=== PATIENT | male | born 1995 | race African-American/Black ===

== ENCOUNTER 2021-05-20 08:34 | Emergency (ER) | payer SELFPAY ==
[~2021-05-20] VITALS: Ht 180.3 cm; Wt 74.8 kg
[2021-05-20 08:40] VITALS: BP 114/75
--- NOTE | 2021-05-20 08:50 | NUR ---
SEEN AND EXAMINED BY .
[2021-05-20] MEDS ORDERED: IPRATROPIUM NEB FS 0.5 MG/2.5 ML AMPUL.NEB ONE (08:53)
[2021-05-20] MEDS ORDERED: ALBUTEROL FS 2.5 MG/3 ML VIAL.NEB ONE (08:53)
--- NOTE | 2021-05-20 08:53 | NUR ---
RT AT BEDSIDE FOR BREATHING TX.
[2021-05-20] MEDS ORDERED: predniSONE 20 MG TABLET ONE (08:56)
[2021-05-20] MEDS ORDERED: IPRATROPIUM NEB FS 0.5 MG/2.5 ML AMPUL.NEB NEB ONE (09:00)
[2021-05-20] MEDS ORDERED: predniSONE 20 MG TABLET PO ONE (09:00)
[2021-05-20] MEDS ORDERED: ALBUTEROL FS 2.5 MG/3 ML VIAL.NEB NEB ONE (09:00)
[2021-05-20] MEDS ORDERED: ALBU8.5H8 INH (09:23)
[2021-05-20] MEDS ORDERED: PRED50TA PO (09:23)
--- NOTE | 2021-05-20 09:30 | NUR ---
Patient discharged to home in stable condition. Written and verbal after care instructions given. Patient verbalizes understanding of instruction.
== END 2021-05-20 09:32 | disposition home or self-care (01) ==
LOC: ER 08:37
DX: J45.909 Unspecified asthma, uncomplicated (principal); Z79.899 Other long term (current) drug therapy
CPT/HCPCS: 94640; 99283; J7512

== ENCOUNTER 2021-06-12 12:23 | Emergency (ER) | payer SELFPAY ==
[~2021-06-12] VITALS: Ht 182.9 cm; Wt 84.4 kg
[~2021-06-12 12:23] MED LIST: ALBU8.5H8 INH; PRED50TA PO
--- NOTE | 2021-06-12 12:36 | NUR ---
THE PATIENT BIBS FOR FEELING SHORT OF BREATH SINCE WAKING UP THIS MORNING. CANT AFFORD ASTHMA MEDICATION AT THIS TIME. OXYGEN SATURATION LEVEL IN ROOM AIR IS AT 95%. DENIES PAIN. ATTACHED TO THE MONITOR. WILL CONTINUE TO MONITOR THE PATIENT.
[2021-06-12] MEDS ORDERED: IPRATROPIUM NEB FS 0.5 MG/2.5 ML AMPUL.NEB ONE (12:38)
[2021-06-12] MEDS ORDERED: ALBUTEROL FS 2.5 MG/3 ML VIAL.NEB ONE (12:38)
[2021-06-12] MEDS ORDERED: IPRATROPIUM NEB FS 0.5 MG/2.5 ML AMPUL.NEB NEB ONE (13:00)
[2021-06-12] MEDS ORDERED: predniSONE 20 MG TABLET PO ONE (13:00)
[2021-06-12] MEDS ORDERED: ALBUTEROL FS 2.5 MG/3 ML VIAL.NEB CONTNEB ONE (13:00)
[2021-06-12] MEDS ORDERED: predniSONE 20 MG TABLET ONE (13:04)
--- NOTE | 2021-06-12 13:07 | NUR ---
THE PATIENT IS GETTING BREATHING TREATMENT. NO ADVERSE REACTIONS NOTED. WILL CONTINUE TO MONITOR THE PATIENT.
[2021-06-12] MEDS ORDERED: PRED20TA PO (13:32)
[2021-06-12] MEDS ORDERED: ALBU8.5H8 INH (13:32)
[2021-06-12 13:52] VITALS: BP 122/75
--- NOTE | 2021-06-12 13:52 | NUR ---
The patient is alert and oriented x4. In room air and denies SOB. Respiration regular and unlabored. VSS. Patient discharged to home in stable condition. Written and verbal after care instructions given. Patient verbalizes understanding of instruction.
== END 2021-06-12 13:53 | disposition home or self-care (01) ==
LOC: ER 12:24
DX: J45.901 Unspecified asthma with (acute) exacerbation (principal); F17.210 Nicotine dependence, cigarettes, uncomplicated; Z79.899 Other long term (current) drug therapy
CPT/HCPCS: 94644; 99285; 99406; J7512